=== PATIENT | female | born 1940 ===

== ENCOUNTER 2018-05-21 12:08 | Emergency (ER) | payer MEDICARE, MEDICAID ==
[2018-05-21 12:13] VITALS: BMI 26.2
--- NOTE | 2018-05-21 12:36 | ED PDOC ---
Arrival/HPI - General Chief Complaint: Trauma Time Seen by Provider: 05/21/18 12:16 Historian: Patient - History of Present Illness Narrative History of Present Illness (Text): 05/21/18 12:28 77 F with PMh of arthritis and Afib (on Eliquis) presents complaining of left wrist pain and right knee pain s/p fall 30 mins ago. Per reports that she tripped on a fence and fell while walking on the sidewalk 30 mins prior to arrival. Patient recalls her nose bleeding after fall but has resolved since. Patient also complains of head pain. Patient denies any fevers, chills, headache, dizziness, chest pain, shortness of breath, dyspnea on exertion, cough, diaphoresis, abdominal pain, nausea, acute back pain, neck pain, or any other complaint. Time/Duration: 1/2 hour Symptom Onset: Sudden Symptom Course: Unchanged Activities at Onset: Light Context: Street Past Medical History - Provider Review Nursing Documentation Reviewed: Yes - Infectious Disease Hx of Infectious Diseases: None - Reproductive Menopause: Yes Family/Social History - Physician Review Nursing Documentation Reviewed: Yes Family/Social History: Unknown Family HX Allergies/Home Meds Allergies/Adverse Reactions: Allergies No Known Allergies Allergy (Verified 05/21/18 12:13) Home Medications: Home Meds Medication Instructions Recorded Confirmed Apixaban [Eliquis] 2.5 mg PO BID 05/21/18 05/21/18 Calcium Carbonate/Vitamin D3 1 each PO DAILY 05/21/18 05/21/18 [Oyster Shell Calcium-Vit D Tab] Esomeprazole Magnesium [Nexium] 40 mg PO DAILY 05/21/18 05/21/18 Glimepiride [amaRYL] 4 mg PO DAILY 05/21/18 05/21/18 LORazepam [Ativan] 0.5 mg PO PRN PRN 05/21/18 05/21/18 Loperamide HCl 2 mg PO PRN 05/21/18 05/21/18 Losartan [Cozaar] 25 mg PO DAILY 05/21/18 05/21/18 Montelukast [Singulair] 10 mg PO DAILY 05/21/18 05/21/18 Pravastatin Sodium [Pravachol] 40 mg PO DAILY 05/21/18 05/21/18 Sotalol [Sorine] 80 mg PO DAILY 05/21/18 05/21/18 Vitamin D 1.25 1.25 iu PO QWK 05/21/18 05/21/18 Zolpidem [Ambien] 10 mg PO PRN PRN 05/21/18 05/21/18 traMADol [Ultram] 50 mg PO PRN PRN 05/21/18 05/21/18 Review of Systems - Physician Review All systems were reviewed & negative as marked: Yes - Review of Systems Constitutional: Normal. absent: Fevers Eyes: Normal ENT: Normal Respiratory: Normal Cardiovascular: Normal Gastrointestinal: Normal Genitourinary Female: Normal Musculoskeletal: Arthralgias (Right knee and Left wrist) Skin: Normal Neurological: Headache. absent: Dizziness Endocrine: Normal Hemo/Lymphatic: Normal Psychiatric: Normal Physical Exam - Physical Exam Narrative Physical Exam (Text): 05/21/18 12:37 Gen: VS reviewed, alert, well developed, well nourished, nontoxic, mild distress Eye: EOMI, PERRL ENT: normal pharynx. Neck: no JVD, supple, no adenopathy CV: regular rate, regular rhythm, no rubs,no murmur, S1, S2 Pulm: no distress, clear to auscultation, no wheeze, no rhonchi, breath sounds equal, no rales Abd: soft, nontender, no guarding, no rebound, no rigidity Ext: Left lateral wrist abrasion and tenderness. Tenderness and hematoma to Right knee Skin: good color, no rash, no cyanosis Psych: responds appropriately to questions, normal affect Neuro: oriented x3, CN2-12 intact grossly, motor intact, sensation intact Vital Signs Temp Pulse Resp BP Pulse Ox 05/21/18 12:08 97.9 F 71 18 141/66 100 Medical Decision Making ED Course and Treatment: 05/21/18 12:38 Impression: 77 F presents complaining of left wrist pain and right knee pain s/p fall 30 mins ago Plan: -- CT Maxillofacial w/o contrast -- CT Head w/o contrast -- CXR -- Hand Left X Ray -- Right Knee X Ray -- Reassess and disposition Prior Visits: Notes and results from previous visits were reviewed. Progress Notes: 05/21/18 15:02 CT sinus findings discussed with dr. cantu, ent service promoter salesperson, states that the patient can follow up in the office for routine follow up and that the Ct findings are not typically not an acute process that warrants emergent treatment. I have discussed the results and plan with the family and they understand and they will follow up with ENT. - RAD Interpretation Narrative RAD Interpretations (Text): 05/21/18 14:40 Right Knee Radiographs: BONES: Normal. No fracture. JOINTS: Normal. No osteoarthritis. JOINT EFFUSION: None. OTHER FINDINGS: None. IMPRESSION: Normal radiographs of the right knee. Left Hand Radiographs: BONES: Normal. No fracture. JOINTS: Normal. No osteoarthritic changes. SOFT TISSUES: Normal. OTHER FINDINGS: None. IMPRESSION: Normal left hand radiographs Chest X Ray LUNGS: No active pulmonary disease. PLEURA: No significant pleural effusion identified, no pneumothorax apparent. CARDIOVASCULAR: No aortic atherosclerotic calcification present. Normal cardiac size. No pulmonary vascular congestion. OSSEOUS STRUCTURES: No significant abnormalities. VISUALIZED UPPER ABDOMEN: Normal. OTHER FINDINGS: None. IMPRESSION: No active disease. CT MAXILLOFACIAL BONES WITHOUT CONTRAST: NASAL BONES: Unremarkable. ORBITS: Unremarkable. PARANASAL SINUSES/ MASTOIDS: There is almost complete opacification of the right maxillary antrum. There is amorphous and serpiginous high attenuation material seen centrally within the sinus, consistent with allergic fungal sinusitis. MAXILLA: Unremarkable. MANDIBLE/ TEMPOROMANDIBULAR JOINTS: Unremarkable. SKULL BASE: Unremarkable. TEMPORAL BONES: Middle ears and mastoid grossly unremarkable. OTHER FINDINGS: None. IMPRESSION: No evidence of fracture. Right maxillary allergic fungal sinusitis. Head CT: HEMORRHAGE: No intracranial hemorrhage. BRAIN: No mass effect or edema. No atrophy or chronic microvascular ischemic changes. VENTRICLES: Unremarkable. No hydrocephalus. CALVARIUM: No fracture. Small left frontal scalp contusion. PARANASAL SINUSES: Chronic right maxillary sinusitis. MASTOID AIR CELLS: Unremarkable as visualized. No inflammatory changes. OTHER FINDINGS: None. IMPRESSION: Small left frontal scalp contusion. No intracranial hemorrhage. Chronic right maxillary sinusitis. Parks Recreation Coordinator: Radiologist - Scribe Statement The provider has reviewed the documentation as recorded by the Tianna Valadez All medical record entries made by the Tianna were at my direction and personally dictated by me. I have reviewed the chart and agree that the record accurately reflects my personal performance of the history, physical exam, medical decision making, and the department course for this patient. I have also personally directed, reviewed, and agree with the discharge instructions and disposition. Disposition/Present on Arrival - Present on Arrival Any Indicators Present on Arrival: No History of DVT/PE: No History of Uncontrolled Diabetes: No Urinary Catheter: No History of Decub. Ulcer: No History Surgical Site Infection Following: None - Disposition Have Diagnosis and Disposition been Completed?: Yes Diagnosis: Head injury, Abrasion, Sinusitis Disposition: HOME/ ROUTINE Disposition Time: 15:58 Patient Plan: Discharge Condition: STABLE Discharge Instructions (ExitCare): Sinusitis in Adults, Closed Head Injury (DC) Additional Instructions: follow up with your ear, nose , throat doctor as soon as possible. return for any problems or concerns especially worsening headache, confusion, drowsiness. Referrals: Carlos Boothe MD [Primary Care Provider] - Follow up with primary Rodolfo Cantu DO [Staff Provider] - Follow up with primary Forms: [facility] (K[place]akh), WORK NOTE
--- NOTE | 2018-05-21 13:13 | CT ---
Date of service: 05/21/2018 PROCEDURE: CT HEAD WITHOUT CONTRAST. HISTORY: trauma COMPARISON: Not available TECHNIQUE: Axial computed tomography images were obtained through the head/brain without intravenous contrast. Radiation dose: Total exam DLP = 907.42 mGy-cm. This CT exam was performed using one or more of the following dose reduction techniques: Automated exposure control, adjustment of the mA and/or kV according to patient size, and/or use of iterative reconstruction technique. FINDINGS: HEMORRHAGE: No intracranial hemorrhage. BRAIN: No mass effect or edema. No atrophy or chronic microvascular ischemic changes. VENTRICLES: Unremarkable. No hydrocephalus. CALVARIUM: No fracture. Small left frontal scalp contusion. PARANASAL SINUSES: Chronic right maxillary sinusitis. MASTOID AIR CELLS: Unremarkable as visualized. No inflammatory changes. OTHER FINDINGS: None. IMPRESSION: Small left frontal scalp contusion. No intracranial hemorrhage. Chronic right maxillary sinusitis.
--- NOTE | 2018-05-21 13:43 | RAD ---
Date of service: 05/21/2018 HISTORY: trauma COMPARISON: No prior. TECHNIQUE: 1 view obtained. FINDINGS: LUNGS: No active pulmonary disease. PLEURA: No significant pleural effusion identified, no pneumothorax apparent. CARDIOVASCULAR: No aortic atherosclerotic calcification present. Normal cardiac size. No pulmonary vascular congestion. OSSEOUS STRUCTURES: No significant abnormalities. VISUALIZED UPPER ABDOMEN: Normal. OTHER FINDINGS: None. IMPRESSION: No active disease.
--- NOTE | 2018-05-21 13:45 | RAD ---
PROCEDURE: Left Hand Radiographs. HISTORY: injury, focus base of thumb COMPARISON: None. TECHNIQUE: 3 views obtained. FINDINGS: BONES: Normal. No fracture. JOINTS: Normal. No osteoarthritic changes. SOFT TISSUES: Normal. OTHER FINDINGS: None. IMPRESSION: Normal left hand radiographs.
--- NOTE | 2018-05-21 13:46 | RAD ---
Date of service: 05/21/2018 PROCEDURE: Right Knee Radiographs. HISTORY: trauma COMPARISON: None. TECHNIQUE: 2 views obtained. FINDINGS: BONES: Normal. No fracture. JOINTS: Normal. No osteoarthritis. JOINT EFFUSION: None. OTHER FINDINGS: None. IMPRESSION: Normal radiographs of the right knee.
--- NOTE | 2018-05-21 13:47 | CT ---
Date of service: 05/21/2018 PROCEDURE: CT MAXILLOFACIAL BONES WITHOUT CONTRAST HISTORY: trauma COMPARISON: None available. TECHNIQUE: Contiguous axial CT images of the maxillofacial bones were obtained. Coronal and sagittal reformats were generated. Radiation dose: Total exam DLP = 759.58 mGy-cm. This CT exam was performed using one or more of the following dose reduction techniques: Automated exposure control, adjustment of the mA and/or kV according to patient size, and/or use of iterative reconstruction technique. FINDINGS: NASAL BONES: Unremarkable. ORBITS: Unremarkable. PARANASAL SINUSES/ MASTOIDS: There is almost complete opacification of the right maxillary antrum. There is amorphous and serpiginous high attenuation material seen centrally within the sinus, consistent with allergic fungal sinusitis. MAXILLA: Unremarkable. MANDIBLE/ TEMPOROMANDIBULAR JOINTS: Unremarkable. SKULL BASE: Unremarkable. TEMPORAL BONES: Middle ears and mastoid grossly unremarkable. OTHER FINDINGS: None. IMPRESSION: No evidence of fracture. Right maxillary allergic fungal sinusitis.
[2018-05-21 14:59] VITALS: BP 154/68; PULSE 73; RESP 20; TEMP 98; O2SAT 99
== END 2018-05-21 15:58 | disposition home or self-care (01) ==
LOC: ED 12:08 → MERGE 12:08 → ED 15:58
DX: S00.03XA Contusion of scalp, initial encounter (principal); S60.812A Abrasion of left wrist, initial encounter; W01.0XXA Fall on same level from slipping, tripping and stumbling without subsequent striking against object, initial encounter; Y93.01 Activity, walking, marching and hiking; Y92.480 Sidewalk as the place of occurrence of the external cause; J32.0 Chronic maxillary sinusitis

== ENCOUNTER 2018-06-14 13:20 | Outpatient (CLI) | payer MEDICARE, MEDICAID | END 2018-06-14 13:21 | disposition home or self-care (01) | LOC: RAD 13:20 ==